=== PATIENT | male | born 1980 | race African-American/Black ===

== ENCOUNTER 2017-09-01 01:09 | Observation (INO) | payer MEDICAID ==
[~2017-09-01] VITALS: Ht 172.7 cm; Wt 285.0 kg
[2017-09-01] VITALS (9 sets, daily range): BP systolic 119–140; BP diastolic 59–78; PULSE 81–95; RESP 16–20; TEMP 97.3–98.5; O2SAT 91–97
[~2017-09-01 01:09] MED LIST: CIPR500T2 PO; NYST100024 TOP; Z.0.WALKERBAR; Z.0.WHEELBAR
[2017-09-01] MEDS ORDERED: [UNRECOGNIZED DRUG - SUPPLY] (01:15)
[2017-09-01] MEDS ORDERED: POTA-163 PO (01:17)
[2017-09-01] MEDS ORDERED: FURO40TA PO (01:17)
--- NOTE | 2017-09-01 01:35 | PD ---
HPI Chief Complaint: Fall Time Seen by Provider: 01:23 Travel History International Travel<30 days: No Contact w/Intl Traveler<30days: No Traveled to known affect area: No History of Present Illness HPI The patient is a 37 year old male who presents to the [facility] emergency department with a history of falling while trying to get up out of bed prior to arrival. The patient is lying on a bed on a box spring on the ground. The patient was on carpeted floor when he rolled out of the bed. The patient has a history of morbid obesity and suspects that his weight is greater than 600 pounds. He normally is mobile with the use of a walker. The patient received his primary care through [facility]. The patient has a history of tracheostomy. The patient reports that he hit his head on a corner table. He denies having any loss of consciousness. He reports that he has not felt well throughout the day today. He reports that he has been weak and lightheaded. He reports that he has had a headache over his forehead. He reports that he has been having more frequent cough today, however he denies any significant productivity to his cough. He denies having any nasal discharge. He does report having a sore throat. He reports having right ankle pain related to the fall. He additionally reports having neck pain. He denies having any numbness or tingling to his extremities. He denies having any new weakness of his extremities. In route to this facility by ambulance services he began to have chest pain. He reports that the pain is in the center of his chest. He denies having any change in p.o. intake, vomiting, or diarrhea. He denies having any known fevers, numbness or tingling to his arms or legs, weakness of his arms or legs. He denies having any urinary symptoms. [facility] Past Medical History Narrative Medical The patient's past medical history is significant for morbid obesity, chest pain , anxiety and depression, migraine headaches, tracheostomy for sleep apnea. Arthritis: Yes (R/T COLD AIR) Asthma: No Autoimmune Disease: No Anxiety: Yes (CURRENTLY) Depression: Yes (CURRENTLY) Heart Rhythm Problems: No Cancer: No Cardiovascular Problems: Yes High Cholesterol: No Chemotherapy: No Chest Pain: Yes (WITH THIS ADMISSION) Congestive Heart Failure: No COPD: No Diabetes: No Diminished Hearing: No Endocrine: No GERD: No Genitourinary: No Headaches: Yes Hiatal Hernia: No Immune Disorder: No Implanted Vascular Access Dvce: Yes Kidney Stones: No Medical other: Yes (abscess around trach 2017) Musculoskeletal: Yes Neurologic: Yes Psychiatric: Yes Reproductive: No Respiratory: Yes (trach for sleep apnea ) Migraines: Yes Radiation Therapy: No Renal Failure: No Seizures: No Thyroid Disease: No Ulcer: No Tetanus Vaccination: Unknown Influenza Vaccination: Yes Past Surgical History Narrative Surgical The patient's past surgical history is significant for tracheostomy, right hand ORIF Abdominal Surgery: No Body Medical Devices: RIGHT HAND METAL Cardiac Surgery: No Ear Surgery: No Endocrine Surgery: No Eye Surgery: No Genitourinary Surgery: No Gynecologic Surgery: No Oral Surgery: No Other Surgery: Yes (tracheostomy) Social History Alcohol Use: No Tobacco Use: No Substance Use: No Allergies-Medications (Allergen,Severity, Reaction): Coded Allergies: No Known Allergies (Verified Allergy, Unknown, 09/01/17) Reported Meds & Prescriptions Reported Meds & Active Scripts Active Reported Potassium Chloride ER (Potassium Chloride) 20 Meq Tab 20 Meq PO DAILY Furosemide 40 Mg Tab 40 Mg PO DAILY [walker bariatric] Review of Systems Except as stated in HPI: all other systems reviewed are Neg General / Constitutional: No: Fever Eyes: No: Visual changes HENT: Positive: Headaches, Neck Pain, No: Neck Stiffness Cardiovascular: No: Chest Pain or Discomfort Respiratory: No: Shortness of Breath Gastrointestinal: No: Abdominal Pain Genitourinary: No: Dysuria Musculoskeletal: No: Pain Skin: No Rash Neurologic: Positive: Weakness, Headache, No: Focal Abnormalities, Change in Mentation (Generalized weakness with fatigue), Slurred Speech, Sensory Disturbance Psychiatric: No: Depression Endocrine: No: Polydipsia Hematologic/Lymphatic: No: Easy Bruising Physical Exam Narrative General: The patient is a well-developed well-nourished male in no acute distress. Head and Neck exam: Head is normocephalic atraumatic. Eyes: EOMI, pupils are equal round and reactive to light. Nose: Midline septum with pink mucous membranes Mouth: Dentition unremarkable. Moist mucus membranes. Posterior oropharynx is not erythematous. No tonsillar hypertrophy. Uvula midline. Airway patent. Neck: No palpable lymphadenopathy. No nuchal rigidity. No thyromegaly. Tracheostomy noted to be in place without any surrounding erythema or drainage. The patient does however have a frequent cough on exam. Cardiovascular: Regular rate and rhythm without murmurs, gallops, or rubs. No pulse deficit to the extremities on simultaneous auscultation and palpation of his radial artery. Lungs: Clear to auscultation bilaterally. No wheezes, rhonchi, or rales. Abdomen: Soft, without tenderness to palpation in all 4 quadrants of the abdomen. No guarding, rebound, or rigidity. Normal bowel sounds are audible. No tenderness on palpation of McBurney's point. Extremities: No clubbing, cyanosis, or edema. 2+ pulses in all 4 extremities. Back: No spinous process tenderness to palpation. No costovertebral angle tenderness to palpation. Neurologic Exam: Cranial nerves 2-12 were intact on exam. Strength is 5/5 in all 4 extremities. No sensory deficits noted. Skin Exam: No rash noted. Intact skin that is warm and dry. Data Data Last Documented VS Vital Signs Date Time Temp Pulse Resp B/P (MAP) Pulse Ox O2 Delivery O2 Flow Rate FiO2 09/01/17:27 96 Room Air 09/01/17 01:12 95 20 Orders Orders Electrocardiogram (09/01/17:24) Complete Blood Count With Diff (09/01/17) Comprehensive Metabolic Panel (09/01/17) Creatine Kinase (Cpk) (09/01/17:24) Ckmb (Isoenzyme) Profile (09/01/17:24) Troponin I (09/01/17) B-Type Natriuretic Peptide (09/01/17) Prothrombin Time / Inr (Pt) (09/01/17) Act Partial Throm Time (Ptt) (09/01/17:24) Lipase (09/01/17:24) Urinalysis - C+S If Indicated (09/01/17) Magnesium (Mg) (09/01/1724) Chest, Single Ap (09/01/1724) Iv Access Insert/Monitor (09/01/17:24) Ecg Monitoring (09/01/17) Oximetry (09/01/1724) Ankle, Complete ([id number]) (5/1/18 01:24) Ice/Cold Pack (09/01/17 01:24) Urine Culture (09/01/17 02:35) Acetamin-Hydrocod 325-5 Mg ([place] 5-325 (09/01/17 03:15) Admit Order (Ed Use Only) (09/01/17 04:04) Splint Or Brace Apply/Monitor (09/01/17 04:04) Labs Laboratory Tests Test 09/01/17 01:35 09/01/17 02:35 White Blood Count 7.6 TH/MM3 Red Blood Count 5.06 MIL/MM3 Hemoglobin 12.3 GM/DL Hematocrit 37.9 % Mean Corpuscular Volume 74.8 FL Mean Corpuscular Hemoglobin 24.3 PG Mean Corpuscular Hemoglobin Concent 32.4 % Red Cell Distribution Width 16.7 % Platelet Count 205 TH/MM3 Mean Platelet Volume 8.4 FL Neutrophils (%) (Auto) 72.0 % Lymphocytes (%) (Auto) 17.8 % Monocytes (%) (Auto) 7.8 % Eosinophils (%) (Auto) 2.1 % Basophils (%) (Auto) 0.3 % Neutrophils # (Auto) 5.4 TH/MM3 Lymphocytes # (Auto) 1.3 TH/MM3 Monocytes # (Auto) 0.6 TH/MM3 Eosinophils # (Auto) 0.2 TH/MM3 Basophils # (Auto) 0.0 TH/MM3 CBC Comment DIFF FINAL Differential Comment Prothrombin Time 10.4 SEC Prothromb Time International Ratio 1.0 RATIO Activated Partial Thromboplast Time 25.8 SEC Blood Urea Nitrogen 16 MG/DL Creatinine 0.88 MG/DL Random Glucose 92 MG/DL Total Protein 7.5 GM/DL Albumin 2.5 GM/DL Calcium Level 8.3 MG/DL Magnesium Level 2.0 MG/DL Alkaline Phosphatase 59 U/L Aspartate Amino Transf (AST/SGOT) 11 U/L Alanine Aminotransferase (ALT/SGPT) 16 U/L Total Bilirubin 0.3 MG/DL Sodium Level 142 MEQ/L Potassium Level 4.2 MEQ/L Chloride Level 106 MEQ/L Carbon Dioxide Level 31.9 MEQ/L Anion Gap 4 MEQ/L Estimat Glomerular Filtration Rate 117 ML/MIN Total Creatine Kinase 58 U/L Troponin I LESS THAN 0.02 NG/ML B-Type Natriuretic Peptide 10 PG/ML Lipase 73 U/L Urine Color YELLOW Urine Turbidity CLEAR Urine pH 5.5 Urine Specific [place] 1.015 Urine Protein NEG mg/dL Urine Glucose (UA) NEG mg/dL Urine Ketones NEG mg/dL Urine Occult Blood NEG Urine Nitrite NEG Urine Bilirubin NEG Urine Urobilinogen 2.0 MG/DL Urine Leukocyte Esterase MOD Urine RBC 2 /hpf Urine WBC 11 /hpf Urine Squamous Epithelial Cells 1 /hpf Urine Amorphous Sediment RARE Urine Mucus FEW /lpf Microscopic Urinalysis Comment CULTURE INDICATED MDM Medical Decision Making Medical Screen Exam Complete: Yes Emergency Medical Condition: Yes Medical Record Reviewed: Yes Interpretation(s) Last Impressions Chest X-Ray 09/01/17123 Signed Impressions: Service Date/Time: Friday, September 01, 2017 02:10 - CONCLUSION: 1. Prominent but well compensated heart. 2. Otherwise, no acute cardiopulmonary process Jorge Perez MD Ankle X-Ray 09/01/17123 Signed Impressions: Service Date/Time: Friday, September 01, 2017 02:12 - CONCLUSION: Diffuse soft tissue prominence. No fracture. Jorge Perez MD Differential Diagnosis Right ankle fracture, versus right ankle dislocation, versus sprain, versus contusion, versus intracranial hemorrhage, versus concussion, versus cervical spine injury Narrative Course During the course of the patient's emergency department visit, the patient's history, examination, and differential diagnosis were reviewed with the patient. The patient was placed on a front desk monitor with oximetry and frequent blood pressure monitoring. The patient had IV access obtained and blood work sent for analysis. The patient had an EKG done on arrival that shows a sinus rhythm with a heart rate of 84, QRS duration 72 ms, QTC [address] segment elevation, T waves are inverted in V1. Unfortunately the patient's weight is beyond the capacity of the bariatric CT scanner in the emergency department. The patient was initially provided Lortab for pain, The patient's laboratory studies were reviewed and remarkable for: 09/01/17 01:35 Total Protein 7.5, Albumin 2.5 L, Calcium Level 8.3 L, Magnesium Level 2.0, Alkaline Phosphatase 59, Aspartate Amino Transf (AST/SGOT) 11 L, Alanine Aminotransferase (ALT/SGPT) 16, Total Bilirubin 0.3, lipase 73, cardiac enzymes within normal limits, BNP is 10. PT PTT within normal limits. Urinalysis shows a moderate leukocyte Estrace 11 WBCs, culture indicated Radiology studies were reviewed and remarkable for a chest x-ray shows prominent but well compensated heart, otherwise no acute cardiopulmonary process. Ankle x-ray reveals diffuse soft tissue prominence, no fracture. The patient will be placed in a Velcro ankle splint for suspected sprain. The patient will be admitted to the hospital for observation regarding a head injury and neck injury status post fall. The patient's results were discussed with the patient, including the plan of care. I explained that further testing and/ or monitoring is indicated based on the patient's history, examination, and/ or laboratory findings. Therefore, I recommended admission for additional evaluation. The patient expressed understanding and was agreeable with this plan. The patient was admitted to the hospital in stable condition and sent to a bed under the care of the [facility] service. Physician Communication Physician Communication The patient's case including history, pertinent physical examination findings, and laboratory studies were discussed with Dr. Corral. It was agreed that the patient would be admitted to the [facility] service. Diagnosis Primary Impression: Fall Qualified Codes: W19.XXXA - Unspecified fall, initial encounter Additional Impressions: Right ankle sprain Qualified Codes: S93.401A - Sprain of unspecified ligament of right ankle, initial encounter Head injury Qualified Codes: S09.90XA - Unspecified injury of head, initial encounter Neck pain Admitting Information Admitting Physician Requests: Observation Kanika Jeronimo MD September 01, 2017 01:35
[2017-09-01 01:54] LABS: AUTOMATED NEUTROPHIL # 5.4 TH/MM3 (1.8-7.7); BASOPHIL % 0.3 % (0.0-2.0); EOSINOPHIL # 0.2 TH/MM3 (0-0.4); EOSINOPHIL % 2.1 % (0.0-4.0); HEMATOCRIT 37.9 % (39.0-51.0); HEMOGLOBIN 12.3 GM/DL (13.0-17.0); LYMPH % 17.8 % (9.0-44.0); LYMPHOCYTE # 1.3 TH/MM3 (1.0-4.8); MEAN CELL VOLUME 74.8 FL (80.0-100.0); MEAN CORPUSCULAR HEMOGLOBIN 24.3 PG (27.0-34.0); MEAN CORPUSCULAR HGB CONC 32.4 % (32.0-36.0); MEAN PLATELET VOLUME 8.4 FL (7.0-11.0); MONO % 7.8 % (0.0-8.0); MONOCYTE # 0.6 TH/MM3 (0-0.9); PLATELET COUNT 205 TH/MM3 (150-450); RED BLOOD COUNT 5.06 MIL/MM3 (4.50-5.90); RED CELL DISTRIBUTION WIDTH 16.7 % (11.6-17.2); WHITE BLOOD COUNT 7.6 TH/MM3 (4.0-11.0)
[2017-09-01 02:06] LABS: PROTHROMBIN TIME - PATIENT 10.4 SEC (9.8-11.6)
[2017-09-01 02:07] LABS: ALBUMIN 2.5 GM/DL (3.4-5.0); ALT (GPT) 16 U/L (12-78); AST (GOT) 11 U/L (15-37); BICARBONATE 31.9 MEQ/L (21.0-32.0); BLOOD UREA NITROGEN 16 MG/DL (7-18); CALCIUM 8.3 MG/DL (8.5-10.1); CHLORIDE 106 MEQ/L (98-107); CREATININE 0.88 MG/DL (0.60-1.30); GLOMERULAR FILTRATION RATE 117 ML/MIN (>89); GLUCOSE,RANDOM 92 MG/DL (74-106); SODIUM (NA) 142 MEQ/L (136-145)
[2017-09-01 02:12] LABS: ALKALINE PHOSPHATASE 59 U/L (45-117); TOTAL BILIRUBIN ADULT 0.3 MG/DL (0.2-1.0); TOTAL PROTEIN 7.5 GM/DL (6.4-8.2); TROPONIN I LESS THAN 0.02 NG/ML (0.02-0.05)
[2017-09-01 03:01] LABS: AMORPHOUS SEDIMENT, URINE RARE; BILIRUBIN, URINE NEG (NEG); BLOOD, URINE NEG (NEG); GLUCOSE,URINE NEG (NEG); KETONE, URINE NEG (NEG); MUCUS URINE FEW /lpf (OCC); NITRITE,URINE NEG (NEG); PH, URINE 5.5 (5.0-8.5); SQUAMOUS EPITHELIAL CELL URINE 1 /hpf (0-5); URINE COLOR YELLOW (YELLW/STRAW); URINE LEUKOCYTE ESTERASE MOD (NEG)
--- NOTE | 2017-09-01 03:14 | RADRPT ---
EXAM DATE/TIME: 09/01/2017 02:10 [facility] COMPARISON: CHEST SINGLE AP, February 08, 2016, 14:40. INDICATIONS : Chest pain. MEDICAL HISTORY : None. SURGICAL HISTORY : None. ENCOUNTER: Initial ACUITY: 1 day PAIN SCORE: 0/10 LOCATION: Bilateral chest FINDINGS: A single view of the chest demonstrates the lungs to be symmetrically aerated without evidence of mas s, infiltrate or effusion. Heart size is prominent but well compensated. Osseous structures are inta ct. Stable position of the tracheostomy tube. CONCLUSION: 1. Prominent but well compensated heart. 2. Otherwise, no acute cardiopulmonary process Jorge Perez MD on September 01, 2017 at 3:11 Board Certified Radiologist. This report was verified electronically.
[2017-09-01] MEDS ORDERED: ACETAMINOPHEN/HYDROcodone 325 MG/5 MG TAB PO ONE (03:15)
--- NOTE | 2017-09-01 03:26 | RADRPT ---
EXAM DATE/TIME: 09/01/2017 02:12 [facility] COMPARISON: No previous studies available for comparison. INDICATIONS : Pain in right ankle. MEDICAL HISTORY : None. SURGICAL HISTORY : None. ENCOUNTER: Initial ACUITY: 1 day PAIN SCORE: 0/10 LOCATION: Right ankle FINDINGS: Three view exam was performed of the right ankle. The bony structures are in normal alignment. No e vidence of fracture or dislocation. Diffuse soft tissue prominence. The ankle mortise is intact. No radiopaque foreign bodies are seen. Bony mineralization is normal. CONCLUSION: Diffuse soft tissue prominence. No fracture. Jorge Perez MD on September 01, 2017 at 3:24 Board Certified Radiologist. This report was verified electronically.
[2017-09-01] MEDS ORDERED: SODIUM CHLORIDE 0.9% FLUSH 10 ML FLUSH IV FLUSH PRN (04:15)
[2017-09-01] MEDS ORDERED: ACETAMINOPHEN 325 MG TAB PO PRN (04:15)
[2017-09-01] MEDS ORDERED: ONDANSETRON HCL 4 MG/2 ML VIAL IVP PRN (04:15)
[2017-09-01] MEDS ORDERED: MAGNESIUM HYDROXIDE SUSP 30 ML CUP PO PRN (04:15)
[2017-09-01] MEDS ORDERED: NALOXONE HCL 0.4 MG/ML AMP IV PUSH PRN (04:15)
[2017-09-01] MEDS ORDERED: BISACODYL 10 MG SUPP RECTAL PRN (04:15)
[2017-09-01] MEDS ORDERED: LACTULOSE SYRUP 20 GM/30 ML CUP PO PRN (04:15)
[2017-09-01] MEDS ORDERED: SENNOSIDES 8.6 MG TAB PO PRN (04:15)
--- NOTE | 2017-09-01 07:49 | EKG ---
Date Performed: 09/01/2017 Time Performed: 01:15:55 PTAGE: 37 years EKG: Sinus rhythm NORMAL ECG No significant change from prior electrocardiogram. PREVIOUS TRACING : 02/08/2016 20.34 DOCTOR: Dell Mosher Interpretating Date/Time 09/01/2017 07:48:25
--- NOTE | 2017-09-01 08:35 | HHI.HP ---
HPI Service [facility] Primary Care Physician No Primary Care Physician Admission Diagnosis Head injury s/p fall, neck pain, right ankle sprain Diagnoses: Chief Complaint: Fall Travel History International Travel<30 Days: No Contact w/Intl Traveler <30 Da: No Traveled to Known Affected Are: No History of Present Illness Mr. Lemus is a pleasant 37-year-old -French male with a history of morbid obesity who presented to the emergency department on 09/01/2017 after he fell from his bed. He usually sleeps on a bed on a box spring on the ground. He rolled out of the bed and fell. He complains of headache. He also complains of both ankle pain and weakness. No chest pain, shortness of breath, fever or chills. He obtains primary care service through [facility] because he cannot get any provider in the local area. He denies any changes in bowel or bladder habits. Review of Systems Except as stated in HPI: all other systems reviewed are Neg Past Family Social History Past Medical History Morbid obesity Depression, anxiety Sleep apnea Past Surgical History Tracheostomy, right hand surgery Reported Medications Potassium Chloride ER (Potassium Chloride) 20 Meq Tab 20 Meq PO DAILY Furosemide 40 Mg Tab 40 Mg PO DAILY [walker bariatric] Allergies: Coded Allergies: No Known Allergies (Verified Allergy, Unknown, 09/01/17) Family History Mom - diabetes. Social History Patient denies using tobacco, alcohol, illicit drugs Physical Exam Vital Signs Vital Signs Date Time Temp Pulse Resp B/P (MAP) Pulse Ox O2 Delivery O2 Flow Rate FiO2 09/01/17 07:51 98.0 84 20 119/59 (79) 95 09/01/17 06:27 98.5 91 18 131/76 (94) 97 09/01/17 04:56 09/01/17 04:53 81 18 137/78 (97) 91 Nasal Cannula 2.00 09/01/17 01:27 96 Room Air 09/01/17 01:12 95 20 137/72 (93) 94 Room Air Physical Exam GENERAL: Alert, Oriented X 3, Morbidly obese. SKIN: No rashes, ecchymoses or lesions. Warm and dry. HEAD: Atraumatic. Normocephalic. No temporal or scalp tenderness. EYES: Pupils equal round and reactive. No injection or drainage. ENT: Nose without bleeding, purulent drainage or septal hematoma. Airway patent. NECK: Trachea midline. No lymphadenopathy. Supple, nontender, no meningeal signs. CARDIOVASCULAR: Regular rate and rhythm without murmurs, gallops, or rubs. No JVD. RESPIRATORY: Clear to auscultation. Breath sounds equal bilaterally. No wheezes , rales, or rhonchi. GASTROINTESTINAL: Abdomen soft, non-tender, nondistended. No guarding. MUSCULOSKELETAL: Extremities without clubbing, cyanosis, or edema. NEUROLOGICAL: Awake and alert. Cranial nerves II through XII intact. No focal neurological deficits. Normal speech. Laboratory Laboratory Tests Test 09/01/17 01:35 09/01/17 02:35 White Blood Count 7.6 Red Blood Count 5.06 Hemoglobin 12.3 Hematocrit 37.9 Mean Corpuscular Volume 74.8 Mean Corpuscular Hemoglobin 24.3 Mean Corpuscular Hemoglobin Concent 32.4 Red Cell Distribution Width 16.7 Platelet Count 205 Mean Platelet Volume 8.4 Neutrophils (%) (Auto) 72.0 Lymphocytes (%) (Auto) 17.8 Monocytes (%) (Auto) 7.8 Eosinophils (%) (Auto) 2.1 Basophils (%) (Auto) 0.3 Neutrophils # (Auto) 5.4 Lymphocytes # (Auto) 1.3 Monocytes # (Auto) 0.6 Eosinophils # (Auto) 0.2 Basophils # (Auto) 0.0 CBC Comment DIFF FINAL Differential Comment Prothrombin Time 10.4 Prothromb Time International Ratio 1.0 Activated Partial Thromboplast Time 25.8 Blood Urea Nitrogen 16 Creatinine 0.88 Random Glucose 92 Total Protein 7.5 Albumin 2.5 Calcium Level 8.3 Magnesium Level 2.0 Alkaline Phosphatase 59 Aspartate Amino Transf (AST/SGOT) 11 Alanine Aminotransferase (ALT/SGPT) 16 Total Bilirubin 0.3 Sodium Level 142 Potassium Level 4.2 Chloride Level 106 Carbon Dioxide Level 31.9 Anion Gap 4 Estimat Glomerular Filtration Rate 117 Total Creatine Kinase 58 Troponin I LESS THAN 0.02 B-Type Natriuretic Peptide 10 Lipase 73 Urine Color YELLOW Urine Turbidity CLEAR Urine pH 5.5 Urine Specific [place] 1.015 Urine Protein NEG Urine Glucose (UA) NEG Urine Ketones NEG Urine Occult Blood NEG Urine Nitrite NEG Urine Bilirubin NEG Urine Urobilinogen 2.0 Urine Leukocyte Esterase MOD Urine RBC 2 Urine WBC 11 Urine Squamous Epithelial Cells 1 Urine Amorphous Sediment RARE Urine Mucus FEW Microscopic Urinalysis Comment CULTURE INDICATED Date/Time Source Procedure Growth Status 09/01/17 02:35 Urine Clean Catch Urine Culture Pending Received Result Diagram: 09/01/1713409/01/17134 Imaging Last Impressions Chest X-Ray 09/01/17123 Signed Impressions: Service Date/Time: Friday, September 01, 2017 02:10 - CONCLUSION: 1. Prominent but well compensated heart. 2. Otherwise, no acute cardiopulmonary process Jorge Perez MD Ankle X-Ray 09/01/17123 Signed Impressions: Service Date/Time: Friday, September 01, 2017 02:12 - CONCLUSION: Diffuse soft tissue prominence. No fracture. MD Nisha Shea VTE Risk Assessment [place] VTE Risk Assessment: Mod/High Risk (score >= 2) Caprini Risk Assessment Model Point Value = 1 Point Value = 2 Point Value = 3 Point Value = 5 Age 41-60 Minor surgery BMI > 25 kg/m2 Swollen legs Varicose veins or History of unexplained or recurrent spontaneous Oral contraceptives or hormone replacement Sepsis (< 1 month) Serious lung disease, including pneumonia (< 1 month) Abnormal pulmonary function Acute myocardial infarction Congestive heart failure (< 1 month) History of inflammatory bowel disease Medical patient at bed rest Age 61-74 Arthroscopic surgery Major open surgery (> 45 min) Laparoscopic surgery (> 45 min) Malignancy Confined to bed (> 72 hours) Immobilizing plaster cast Central venous access Age >= 75 History of VTE Family history of VTE Factor V Leiden Prothrombin [id number] Lupus anticoagulant Anticardiolipin antibodies Elevated serum homocysteine Heparin-induced thrombocytopenia Other congenital or acquired thrombophilia Stroke (< 1 month) Elective arthroplasty Hip, pelvis, or leg fracture Acute spinal cord injury (< 1 month) Prophylaxis Regimen Total Risk Factor Score Risk Level Prophylaxis Regimen 0-1 Low Early ambulation 2 Moderate Order ONE of the following: *Sequential Compression Device (SCD) *Heparin 5000 units SQ BID 3-4 Higher Order ONE of the following medications: *Heparin 5000 units SQ TID *Enoxaparin/Lovenox 40 mg SQ daily (WT < 150 kg, CrCl > 30 mL/min) *Enoxaparin/Lovenox 30 mg SQ daily (WT < 150 kg, CrCl > 10-29 mL/min) *Enoxaparin/Lovenox 30 mg SQ BID (WT < 150 kg, CrCl > 30 mL/min) AND/OR *Sequential Compression Device (SCD) 5 or more Highest Order ONE of the following medications: *Heparin 5000 units SQ TID (Preferred with Epidurals) *Enoxaparin/Lovenox 40 mg SQ daily (WT < 150 kg, CrCl > 30 mL/min) *Enoxaparin/Lovenox 30 mg SQ daily (WT < 150 kg, CrCl > 10-29 mL/min) *Enoxaparin/Lovenox 30 mg SQ BID (WT < 150 kg, CrCl > 30 mL/min) AND *Sequential Compression Device (SCD) Assessment and Plan Problem List: (1) Bilateral ankle pain ICD Code: M25.571 - Pain in right ankle and joints of right foot; M25.572 - Pain in left ankle and joints of left foot (2) Fall ICD Code: W19.XXXA - Unspecified fall, initial encounter (3) Morbid obesity with body mass index of 70 and over in adult ICD Code: E66.01 - Morbid (severe) obesity due to excess calories; Z68.45 - Body mass index (BMI) 70 or greater, adult Status: Acute Assessment and Plan Mr. Lemus is a 37-year-old -French male, morbidly obese who fell from his bed as he was trying to rollover and subsequently came to the hospital. Patient complains of bilateral ankle pain. Fall Bilateral ankle pain -Physical therapy evaluated patient. Patient is not able to stand up or ambulate at all. -He will require bariatric bed for physical therapy. -We anticipate this would be a very difficult discharge due to patient's body habitus. Morbid obesity with BMI 95.5 -Encouraged patient to reduce caloric intake to lose weight. -At this point active exercise is not an option for him. However if he loses weight by diet control, in future he may be able to participate in more physical activities. Patient needs to be transferred to a different floor due to need for Bariatric bed. Full code. Lovenox. Raiza Swenson DO September 01, 2017 8:35 am
[2017-09-01] MEDS: SODIUM CHLORIDE 0.9% FLUSH 10 ML FLUSH IV FLUSH SCH ×2 (09:07→20:22)
[2017-09-01] MEDS: DOCUSATE SODIUM 50 MG/SENNA 8.6 MG TAB PO SCH ×2 (09:07→20:23)
[2017-09-01] MEDS: ACETAMINOPHEN/HYDROcodone 325 MG/5 MG TAB PO PRN (15:57)
[2017-09-01] MEDS: ENOXAPARIN SODIUM 40 MG/0.4 ML SYRINGE SQ SCH (15:59)
[2017-09-02 01:03] VITALS: BP 119/60; PULSE 92; RESP 18; TEMP 98.3; O2SAT 92
[2017-09-02] MEDS: ACETAMINOPHEN/HYDROcodone 325 MG/5 MG TAB PO PRN ×2 (03:21→08:11)
[2017-09-02 04:42] LABS: AUTOMATED NEUTROPHIL # 5.3 TH/MM3 (1.8-7.7); BASOPHIL # 0.1 TH/MM3 (0-0.2); BASOPHIL % 0.8 % (0.0-2.0); EOSINOPHIL # 0.1 TH/MM3 (0-0.4); EOSINOPHIL % 1.1 % (0.0-4.0); HEMATOCRIT 35.5 % (39.0-51.0); HEMOGLOBIN 11.6 GM/DL (13.0-17.0); LYMPH % 19.1 % (9.0-44.0); LYMPHOCYTE # 1.4 TH/MM3 (1.0-4.8); MEAN CELL VOLUME 75.1 FL (80.0-100.0); MEAN CORPUSCULAR HEMOGLOBIN 24.5 PG (27.0-34.0); MEAN CORPUSCULAR HGB CONC 32.6 % (32.0-36.0); MEAN PLATELET VOLUME 8.7 FL (7.0-11.0); MONO % 6.4 % (0.0-8.0); MONOCYTE # 0.5 TH/MM3 (0-0.9); NEUT % 72.6 % (16.0-70.0); PLATELET COUNT 212 TH/MM3 (150-450); RED BLOOD COUNT 4.72 MIL/MM3 (4.50-5.90); RED CELL DISTRIBUTION WIDTH 16.8 % (11.6-17.2); WHITE BLOOD COUNT 7.3 TH/MM3 (4.0-11.0)
[2017-09-02 05:05] LABS: BICARBONATE 30.2 MEQ/L (21.0-32.0); CALCIUM 8.2 MG/DL (8.5-10.1); CREATININE 0.8 MG/DL (0.60-1.30)
[2017-09-02 07:30] VITALS: BP 142/84; PULSE 81; RESP 22; TEMP 98; O2SAT 94
[2017-09-02] MEDS: SODIUM CHLORIDE 0.9% FLUSH 10 ML FLUSH IV FLUSH SCH (08:11)
[2017-09-02] MEDS: DOCUSATE SODIUM 50 MG/SENNA 8.6 MG TAB PO SCH (08:11)
--- NOTE | 2017-09-02 09:53 | HHI.PR ---
Subjective Remarks Follow up for fall. Patient complains of headache, neck pain. Resting in bed. No fever, chills. Not able to stand up. Objective Vitals Vital Signs Date Time Temp Pulse Resp B/P (MAP) Pulse Ox O2 Delivery O2 Flow Rate FiO2 09/02/17 07:30 98.0 81 22 142/84 (103) 94 09/02/17 04:21 20 09/02/17 01:03 98.3 92 18 119/60 (79) 92 09/01/17 21:02 97.8 93 20 140/66 (90) 94 09/01/17 16:07 97.3 91 16 133/75 (94) 93 09/01/17 11:13 98.3 88 16 120/61 (80) 95 Result Diagram: 09/02/1741109/02/17411 Imaging Last Impressions Chest X-Ray 09/01/17123 Signed Impressions: Service Date/Time: Friday, September 01, 2017 02:10 - CONCLUSION: 1. Prominent but well compensated heart. 2. Otherwise, no acute cardiopulmonary process Jorge Perez MD Ankle X-Ray 09/01/17123 Signed Impressions: Service Date/Time: Friday, September 01, 2017 02:12 - CONCLUSION: Diffuse soft tissue prominence. No fracture. Jorge Perez MD Objective Remarks GENERAL: Alert, Oriented x 3, NAD. Morbidly obese. SKIN: Warm and dry. HEAD: Normocephalic. EYES: No scleral icterus. No injection or drainage. NECK: Supple, trachea midline. No JVD or lymphadenopathy. CARDIOVASCULAR: Regular rate and rhythm without murmurs, gallops, or rubs. RESPIRATORY: Breath sounds equal bilaterally. No accessory muscle use. GASTROINTESTINAL: Abdomen soft, non-tender, nondistended. MUSCULOSKELETAL: No cyanosis, or edema. BACK: Nontender without obvious deformity. No CVA tenderness. Procedures None. A/P Problem List: (1) Bilateral ankle pain ICD Code: M25.571 - Pain in right ankle and joints of right foot; M25.572 - Pain in left ankle and joints of left foot (2) Fall ICD Code: W19.XXXA - Unspecified fall, initial encounter (3) Morbid obesity with body mass index of 70 and over in adult ICD Code: E66.01 - Morbid (severe) obesity due to excess calories; Z68.45 - Body mass index (BMI) 70 or greater, adult Status: Acute Assessment and Plan Mr. Lemus is a 37-year-old -[place] male, morbidly obese who fell from his bed as he was trying to rollover and subsequently came to the hospital. Patient complains of bilateral ankle pain. Fall Bilateral ankle pain -Physical therapy evaluated patient. Patient is not able to stand up or ambulate at all. -He will require bariatric bed for physical therapy. -We anticipate this would be a very difficult discharge due to patient's body habitus. Morbid obesity with BMI 95.5 -Encouraged patient to reduce caloric intake to lose weight. -At this point active exercise is not an option for him. However if he loses weight by diet control, in future he may be able to participate in more physical activities. Headache Neck pain - Acetaminophen for headache. Will also add Flexeril 10mg Q8hrs PRN Full code. Lovenox. Discharge plan: Difficult discharge due to body habitus, unstable gait. Raiza Swenson DO September 02, 2017 9:53 am
[2017-09-02] MEDS ORDERED: CYCLOBENZAPRINE HCL 10 MG TAB PO PRN (10:00)
[2017-09-02 11:36] VITALS: BP 129/68; PULSE 92; RESP 22; O2SAT 94
[2017-09-02] MEDS ORDERED: HYDR-3516 PO (12:50)
[2017-09-02] MEDS ORDERED: CYCL10TA PO (12:50)
--- NOTE | 2017-09-02 12:51 | HHI.FF ---
Face to Face Verification Diagnosis: (1) Morbid obesity with body mass index of 70 and over in adult (2) Bilateral ankle pain (3) Fall Home Health Nursing Order: Medical education Signs/symptoms of disease process Medication education-adverse effect Nursing assessment with vital signs I have seen patient Marques Lemus on 09/02/17. My clinical findings support the need for the requested home health care services because: Ltd mobility - disease progression Deconditioned w/ increased weakness Limited ability to care for self Need for psychosocial assistance High risk of falls Infection w/ risk of complications I certify that my clinical findings support that this patient is homebound because: Unsteady gait/balance Unsafe to leave home unassisted Need for psychosocial assistance [id number] bed/chair Unable to use public transportation Raiza Swenson DO September 02, 2017 12:51 pm
[2017-09-02] MEDS ORDERED: WHEEMIS3 (12:58)
[2017-09-02] MEDS: ENOXAPARIN SODIUM 40 MG/0.4 ML SYRINGE SQ SCH (15:00)
== END 2017-09-02 16:24 | disposition home or self-care (01) ==
LOC: NEPE 01:09 → NEDA 04:08 → NEPFCDU 05:36 → NEDH 09-02 08:32 → NEPFCDU 09-02 08:36
PROVIDERS: ADMIT Hospitalist; ATTEND Hospitalist
DX: S93.401A Sprain of unspecified ligament of right ankle, initial encounter (principal); S09.90XA Unspecified injury of head, initial encounter; M25.572 Pain in left ankle and joints of left foot; R51 Headache; M54.2 Cervicalgia; R26.81 Unsteadiness on feet; R53.1 Weakness; R42 Dizziness and giddiness; J02.9 Acute pharyngitis, unspecified; R07.9 Chest pain, unspecified; R05 Cough; G47.30 Sleep apnea, unspecified; F41.9 Anxiety disorder, unspecified; F32.9 Major depressive disorder, single episode, unspecified; E66.01 Morbid (severe) obesity due to excess calories; Z68.45 Body mass index [BMI] 70 or greater, adult; Z93.0 Tracheostomy status; W06.XXXA Fall from bed, initial encounter
CPT/HCPCS: 71045; 73610; 80048; 80053; 81001; 82550; 83690; 83735; 83880; 84484; 85025; 85610; 85730; 87086; 93005; 97163; 99285; G0378; G8987; G8988; J1650; L1906